=== PATIENT | female | born 1995 | race Caucasian/White ===

== ENCOUNTER 2019-09-11 15:21 | Emergency (ER) | payer BC ==
--- OUTSIDE RECORDS SUMMARY | 2019-09-11 15:35 | XMS REPORT | Continuity of Care Document ---
:1995 External Reference #:[id number] Author Name CHINO Del Rio Address [address] [place] [id number] Problems Description No Information Available Social History Type Date Description Comments Sex Unknown Allergies, Adverse Reactions, Alerts Description No Known Drug Allergies Medications Active Medications SIG Qnty Indications Ordering Provider Date Drospirenone-Ethinyl Unknown Estradiol 3-0.02mg Tablets Ra Allergy Relief take 1 tablet by Unknown mouth once daily 10mg Tablets Proair HFA two inhalations Unknown every 4 hours as 108(90Base) mcg/Act needed for cough, Aerosol wheezing or chest tightness Medications Administered in Office Medication SIG Qnty Indications Ordering Provider Date Injection Allergy Injection 07/14/2019 Injection Injection Allergy Injection 07/07/2019 Injection Immunizations CPT Code Status Date Vaccine Lot # [id number] Given Unknown Influenza Vaccine Vital Signs Date Vital Result Comment 07/07/2019 11:54am Height 69 inches 5'9" Weight 176.00 lb Weight 79.834 kg Respiratory Rate 18 /min Heart Rate 80 /min O2 % BldC Oximetry 96 % BP Systolic 117 mmHg BP Diastolic 70 mmHg Asthma Control Test 23 BMI (Body Mass Index) 26.0 kg/m2 Results Description No Information Available Procedures Date Code Description Status 07/14/2019 14488 Injection Completed 07/07/2019 72816 Injection Completed Medical Devices Description No Information Available Encounters Type Date Location Provider Dx Diagnosis Office Visit 07/07/2019 [facility] Lucie Del Rio30.1 Allergic rhinitis 11:40a [employer] due to pollen J30.81 Allergic rhinitis due to animal (cat) (dog) hair and dander 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 hair and dander 07/14/2019 J30.81 Allergic rhinitis due to animal (cat) (dog) Allergy Injection hair and dander 07/14/2019 J30.1 Allergic rhinitis due to pollen Benji Huntley M.D. 07/14/2019 J30.1 Allergic rhinitis due to pollen Allergy Injection 07/07/2019 J30.1 Allergic rhinitis due to pollen Benji Huntley M.D. 07/07/2019 J30.81 Allergic rhinitis due to animal (cat) (dog) Benji Huntley M.D. hair and dander 07/07/2019 J30.81 Allergic rhinitis due to animal (cat) (dog) Benji Huntley M.D. 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 07/07/2019 J30.1 Allergic rhinitis due to pollen Benji Huntley M.D. 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
[2019-09-11 16:15] VITALS: BP 124/74
[2019-09-11] MEDS ORDERED: Ondansetron ODT TAB* 4 MG PO ONE (16:19)
--- NOTE | 2019-09-11 16:23 | UC ---
Head Injury HPI - HPI Summary HPI Summary: last night hit head on pole when walking. Denies any LOC , complaints of nausea , light sensitivity, blurry vision, headache. took Ibuprofen 600mg no relief. - History Of Current Complaint Chief Complaint: UCHeadInjury Stated Complaint: HEAD INJURY Time Seen by Provider: 09/11/19 16:10 Hx Obtained From: Patient Hx Last Menstrual Period: 09/03/19 ?: No Onset/Duration: Sudden Onset, Lasting Hours Severity Currently: Severe Severity Initially: Severe Pain Intensity: 10 Character: Throbbing, Pressure Associated Signs And Symptoms: Positive: Nausea, Other - swelling to the right side of head - Allergies/Home Medications Allergies/Adverse Reactions: Allergies Allergy/AdvReac Type Severity Reaction Status Date / Time No Known Allergies Allergy Verified 09/11/19 16:15 Home Medications: Home Medications Ethinyl Estradiol/Drospirenone [Ivy 28 Tablet] 1 each PO DAILY 09/11/19 [ History Confirmed 09/11/19] Ibuprofen TAB* [Motrin TAB* 600 MG] 600 mg PO Q8H PRN 09/11/19 [History Confirmed 09/11/19] PMH/Surg Hx/FS Hx/Imm Hx Previously Healthy: Yes - Surgical History Surgical History: None - Family History Known Family History: Negative: Cardiac Disease, Hypertension - Social History Alcohol Use: Weekly Substance Use Type: None Smoking Status (MU): Never Smoked Tobacco Review of Systems All Other Systems Reviewed And Are Negative: Yes Constitutional: Positive: Fatigue Musculoskeletal: Positive: Edema - right side of head over the eye Neurological: Positive: Headache Physical Exam Triage Information Reviewed: Yes Appearance: Well-Appearing, Well-Nourished, Pain Distress Vital Signs: Initial Vital Signs Temp 100.6 F 09/11/19 16:09 Pulse 93 09/11/19 16:09 Resp 16 09/11/19 16:09 BP 124/74 09/11/19 16:09 Pulse Ox 94 09/11/19 16:09 Vital Signs Reviewed: Yes Eye Exam: Normal ENT Exam: Normal Dental Exam: Normal Neck exam: Normal Respiratory Exam: Normal Cardiovascular Exam: Normal Abdominal Exam: Normal Bowel Sounds: Positive: Present Musculoskeletal: Positive: Edema @ - over the right eye and side of head Neurological: Positive: Alert, Muscle Tone Normal Psychological Exam: Normal Skin Exam: Normal Head Injury Course/Dx - Course Course Of Treatment: hx obtained, exam performed ,meds reviewed, zofran given. due to the swelling and amount of pain she is experiencing, it was agreed to send her to ER for higher level of evaluation - Differential Dx/Diagnosis Differential Diagnosis/HQI/PQRI: Concussion Without LOC, Contusion, Skull Fracture Provider Diagnosis: Head injury, acute Discharge ED - Sign-Out/Discharge Documenting (check all that apply): Patient Departure All imaging exams completed and their final reports reviewed: No Studies - Discharge Plan Condition: Stable Disposition: HOME Patient Education Materials: Head Injury (ED) Referrals: No Primary Care Phys,NOPCP [Primary Care Provider] - Additional Instructions: 1. take the zofran as needed. 2. FOllow up in the Er for further evaluation - Billing Disposition and Condition Condition: STABLE Disposition: Home
== END 2019-09-11 16:27 | disposition home or self-care (01) ==
LOC: UCCORT 15:21
DX: S09.90XA Unspecified injury of head, initial encounter (principal); W22.09XA Striking against other stationary object, initial encounter; Y93.01 Activity, walking, marching and hiking; Y92.9 Unspecified place or not applicable
CPT/HCPCS: 99202; A9270-GY; G0463